=== PATIENT | female | born 1950 | race Hispanic/Latino ===

== ENCOUNTER 2022-06-27 02:04 | Day surgery (SDC) | payer MEDICARE, SELFPAY ==
[2022-06-16 15:54] VITALS: BMI 29.5
[2022-06-27 07:43] VITALS: BP 152/76; PULSE 70; RESP 16; TEMP 36.1; O2SAT 98; BMI 29.5
[2022-06-27] MEDS: LACTATED RINGERS 1,000 ML 150 ML IV CONT (07:52)
--- NOTE | 2022-06-27 08:38 | P.PNAN_ITS ---
Anes - Initial Pre Proc Eval Procedure: Operation Date: 06/27/22 09:00 Proposed Procedures p Screening Colonoscopy - Jonh Ledbetter MD Date/Time: 06/27/22 08:38 Surgeon: Jonh Ledbetter MD Pre Op Diagnosis: hx of colon polyps Patient Data Age: 71 Gender: F Height: 1.5 m Weight: 66.4 kg Last Vital Signs Temp 97 F L 06/27/22 07:43 Pulse 70 06/27/22 07:43 Resp 16 06/27/22 07:43 BP 152/76 H 06/27/22 07:43 Pulse Ox 98 06/27/22 07:43 O2 Del Method Room Air 06/27/22 07:43 Allergies Allergy/AdvReac Type Severity Reaction Status Date / Time iohexol Allergy Intermediate Hives Verified 06/27/22 07:42 [From contrast - CT, X-RAY] latex Allergy Intermediate Rash Verified 06/27/22 07:42 Home Medications Medication Instructions Recorded Confirmed Type amlodipine 5 mg tablet 5 mg PO DAILY 06/16/22 06/27/22 History carvedilol 6.25 mg tablet 6.25 mg PO BID 06/16/22 06/27/22 History rosuvastatin 20 mg tablet 20 mg PO WEEKLY 06/16/22 06/27/22 History Patient hx anesthesia problems: none Family hx anesthesia problems: none Results Review: All pre-operative results and documents have been reviewed as part of the pre- operative evaluation. PMF Social History Social History Smoking status: Never smoker Alcohol intake: never Substance use: never Substance use type: does not use Living arrangements: with family Spiritual care concerns: No Anes - Eval Final PreProcedure Day of Procedure 06/27/22 08:38 Patient weight: normal Heart: regular rate and rhythm Lungs: clear to auscultation Airway: Mallampati scale class II Neurological: alert and oriented Last oral intake: >/= 8 hours ASA classification: III Emergent: no Anesthetic plan: proceed Anesthesia type and monitoring: general GIVS and standard monitoring Results Review: All pre-operative results and documents have been reviewed as part of the pre-operative evaluation. Informed Consent: The patient's anesthetic plan and its attendant risks and benefits were discussed with the patient/family/POA. Questions were solicited and answers provided to the satisfaction of the patient/family/POA.
--- NOTE | 2022-06-27 08:43 | PM.HPGS ---
History of Present Illness History of Present Illness Consent: Risks, benefits, and alternatives have been discussed and questions answered. Patient agrees to proceed with procedure. Chief complaint: hx of colon polyps Narrative: Bernie Curry is a 71 year old female with colon polyp in 2017 Review of Systems Constitutional: Constitutional: Denies headache(s) and Denies weakness Eyes: Eyes: Denies blurry vision ENT: Reports Normal hearing present, Denies headache(s) and Denies neck pain Cardiovascular: Cardiovascular: Denies chest pain and Denies dyspnea Respiratory: Respiratory: Denies dyspnea Gastrointestinal: Gastrointestinal: Reports no additional gastrointestinal complaints Genitourinary: Genitourinary: Denies dysuria Musculoskeletal: Musculoskeletal: Denies neck pain Integumentary/Breasts: Skin/Breast: Denies dry skin Neurologic: Reports Normal hearing present, Denies headache(s) and Denies weakness Psychiatric: Psychiatric: Denies anxiety Endocrine: Endocrine: Denies change in body appearance Hematologic/Lymphatic: Hematologic/Lymphatic: Denies easy bleeding Allergic/Immunologic: Allergic/Immunologic: Denies urticaria [facility] Past Medical History Medical History (Updated 06/27/22 @ 08:44 by Jonh Ledbetter MD) Adenomatous colon polyp Social History Social History Smoking status: Never smoker Alcohol intake: never Substance use: never Substance use type: does not use Living arrangements: with family Spiritual care concerns: No Meds Home Medications and Allergies Home Medications Medication Instructions Recorded Confirmed Type amlodipine 5 mg tablet 5 mg PO DAILY 06/16/22 06/27/22 History carvedilol 6.25 mg tablet 6.25 mg PO BID 06/16/22 06/27/22 History rosuvastatin 20 mg tablet 20 mg PO WEEKLY 06/16/22 06/27/22 History Allergies Allergy/AdvReac Type Severity Reaction Status Date / Time iohexol Allergy Intermediate Hives Verified 06/27/22 07:42 [From contrast - CT, X-RAY] latex Allergy Intermediate Rash Verified 06/27/22 07:42 Vital Signs Vital Signs - 24 hr 06/27/22 07:43 Temperature 97 F L Pulse Rate 70 Respiratory Rate 16 Blood Pressure 152/76 H Pulse Oximetry 98 Oxygen Delivery Room Air Exam Const: General: comfortable and no acute distress HENMT: Face/Nose/Sinus: Normal nares present Eyes: General: appearance normal, both eyes and all related structures Neck: Neck: no JVD Resp: Auscultation: clear to auscultation bilaterally Cardio: Rate: regular rate Rhythm: regular rhythm GI: Inspection: non-distended GI Palp: Yes Soft to palpation Skin: General skin exam: normal color Neuro: General: gait normal Speech: normal speech Extrem: General: normal to inspection Psych: Mental Status: mental status grossly normal Assessment and Plan Assessment and plan (1) Adenomatous colon polyp: Code(s): D12.6 - Benign neoplasm of colon, unspecified Status: Acute Assessment and Plan: colonoscopy
[2022-06-27 08:59] VITALS: BP 140/70; PULSE 62; RESP 20; O2SAT 98
[2022-06-27 09:09] VITALS: BP 134/68; PULSE 58; RESP 20; O2SAT 98
[2022-06-27 09:19] VITALS: BP 145/77; PULSE 62; RESP 20; O2SAT 98
== END 2022-06-27 09:29 | disposition home or self-care (01) ==
PROVIDERS: Visit Provider Internal Medicine Gastroenterology
PROC: 0DJD8ZZ Inspection of Lower Intestinal Tract, Via Natural or Artificial Opening Endoscopic (ICD-10-PCS; CPT 45378; principal; 2022-06-27 09:00)
DX: Z12.11 Encounter for screening for malignant neoplasm of colon (principal); D12.2 Benign neoplasm of ascending colon; D12.0 Benign neoplasm of cecum; K57.30 Diverticulosis of large intestine without perforation or abscess without bleeding; K64.8 Other hemorrhoids
CPT/HCPCS: 45385; 88305; J2704; J7120

== ENCOUNTER 2023-03-10 14:06 | Emergency (ER) | payer MEDICARE, SELFPAY ==
--- NOTE | 2023-03-10 14:10 | ED.EXTPRO ---
HPI - Extremity Problem General Chief complaint: Extremity Injury, Lower Stated complaint: Left Leg Injury Source: patient and RN notes reviewed Mode of arrival: ambulatory Limitations: no limitations History of Present Illness HPI Narrative: 72-year-old female presents with concern for injury to her left lower anterior leg. She reports 1 month ago she fell when she was getting off the bus developed a large area of swelling and bruising to the front of her leg. She reports several days later her ankle and foot had some swelling and bruising. She denies any pain at any point to her ankle and foot. She denies any pain when walking. She denies anterior leg pain unless she is pushing on swollen area. She reports the area of swelling and bruising is been the way it is for about 2 weeks. She reports it has gotten smaller since the initial injury. She denies any posterior calf pain, redness, warmth, swelling MD Complaint: other (Extremity injury) Related Data Home Medications Medication Instructions Recorded Confirmed amlodipine 5 mg tablet 5 mg PO DAILY 06/16/22 03/10/23 carvedilol 6.25 mg tablet 6.25 mg PO BID 06/16/22 03/10/23 rosuvastatin 20 mg tablet 20 mg PO WEEKLY 06/16/22 03/10/23 Allergies Allergy/AdvReac Type Severity Reaction Status Date / Time iohexol Allergy Intermediate Hives Verified 03/10/23 14:19 [From contrast - CT, X-RAY] latex Allergy Intermediate Rash Verified 03/10/23 14:19 Review of Systems Review of Systems: CONSTITUTIONAL: Denies malaise, chills, sweats, or fever. SKIN: Denies rash or itching, open skin, laceration, abrasion, redness, warmth, swelling. MUSCULOSKELETAL: Reports swelling in the bruising to the anterior left lower leg NEUROLOGIC: Denies numbness, weakness All systems reviewed & are unremarkable except as noted in HPI and below PMFSH Past Medical History Medical History (Updated 03/10/23 @ 14:33 by Lynda García NP) Adenomatous colon polyp Social History Social History Smoking status: Never smoker Alcohol intake: never Substance use: never Substance use type: does not use Living arrangements: with family Spiritual care concerns: No Comments At time of signature, agree with nursing past medical, surgical, social and family history. There is no relevant family history pertinent to the presenting complaint Exam Narrative: GENERAL: Well-appearing, well-nourished, and in no acute distress. HEAD: Normocephalic, atraumatic. EYES: PERRLA, conjunctivae clear NECK: Supple. CHEST: Speaks in full sentences. No respiratory distress. HEART: Regular rate and rhythm. Normal and equal peripheral pulses. EXTREMITIES: Left lower extremity has normal strength and sensation, normal range of motion. Normal sensation with sensitivity to light touch and pain. Approximately 8 cm x 3 cm area of healing ecchymosis, raised induration without erythema, warmth, only mildly tender, consistent with healing hematoma. No open wounds, no skin tenting, no devitalized tissue or atrophy, no trophic changes, no obvious deformity, alignment normal, nearby joints and structures intact. Distal pulses palpable and equal bilaterally, skin warm, dry, pink. Capillary refill less than 3 seconds. SKIN: Warm, dry, no rash. NEURO: Alert and oriented x3. PSYCH: Normal mood and affect Course Course Emergency Course: Patient is aware of diagnosis, understands and agrees to treatment plan. Anticipatory guidance given. Patient agrees to follow-up as directed and is aware of reasons to seek care at the emergency department. Portions of this record may have been created with voice recognition software Level of Care: Express Care Visit Vital Signs Vital signs: Reviewed. Critical Care Time Critical Care Time Critical Care Time: No Discharge Plan Discharge Clinical Impression: Hematoma Condition: Stable Instructions: Hematoma (ED) Additional Instructions: 1) Please follow-u
[2023-03-10 14:18] VITALS: BP 145/73; PULSE 63; RESP 16; TEMP 36.4; O2SAT 99
[2023-03-10 14:19] VITALS: BP 145/73; PULSE 63; RESP 16; TEMP 36.4; O2SAT 99
== END 2023-03-10 14:35 | disposition home or self-care (01) ==
PROVIDERS: Emergency Provider Nurse Practitioner
DX: S80.12XA Contusion of left lower leg, initial encounter (principal); V68.4XXA Person boarding or alighting a heavy transport vehicle injured in noncollision transport accident, initial encounter
CPT/HCPCS: 99212; G0463